=== PATIENT | female | born 1995 | race African-American/Black ===

== ENCOUNTER 2017-01-11 06:15 | Emergency (ER) | payer SELFPAY ==
--- NOTE | ~2017-01-11 | CR72 ---
[facility] A Service of [facility] / [facility] RADIOLOGY TEXT RESULTS PATIENT: CHUCK ROCHA LOCATION: [facility] : [birth year] UNIT #: [id number] AGE: [address]: Elias Hussein MD SEX: F ORDER DR: [id number] [facility] [address] [place], [place] [address] [id number] MR#: [id number] Acc #: [id number] NAME: CHUCK ROCHA : 1995 SEX: F STUDY DATE/TIME: 01/11/2017 5:40 UNIT: [facility] ROOM: STUDY DESCRIPTION: CR Chest Single View Portable Attending Physician: Elias Hussein M.D. Ordering Physician: Elias Hussein M.D. Primary Care Physician: Candida Ponce M.D. MEDICAL IMAGING REPORT This report is preliminary unless electronic signature is present EXAM Portable chest INDICATIONS Shortness of air beginning 2 hours ago. PROCEDURE Frontal view chest. COMPARISON 11/20/2013 FINDINGS Heart size upper limits of normal. Mildly enlarged. No dense consolidation, effusion or pneumothorax. IMPRESSION Upper limits of normal to mildly enlarged heart size. No active process. Dictated by... Darwin Farah M.D. THIS IS AN ELECTRONICALLY VERIFIED REPORT Darwin Farah M.D. at 01/11/2017 10:24 PM Sheryl TD: 01/11/2017 06:45 JOB #: [id number] MEDICAL IMAGING REPORT Page 1 of 1 COPY
[~2017-01-11 06:15] MED LIST: ALBUTEROL17 GM INH; MEDROL4 MG/DOSE- PO; ZYRTEC PO
== END 2017-01-11 06:45 | disposition home or self-care (01) ==
LOC: CED 06:15
DX: J45.901 Unspecified asthma with (acute) exacerbation (principal)
CPT/HCPCS: 71010; 94640; 99284